=== PATIENT | female | born 1950 | race Caucasian/White ===

== ENCOUNTER → 2018-07-30 | Day surgery (SDC) | payer BC ==
[~2018-07-30] MED LIST: ALBUTEROL 0.083% (NEB) 2.5 MG/3 ML AMP HHN; CEFAZOLIN 1 GM INJ; CEFAZOLIN 2 GM/50 ML (PMX) 50 ML IVPB; DIPHENHYDRAMINE 50 MG INJ IV; EPHEDrine SULFATE 50 MG/5 ML SYG IV; FENTAnyl 50 MCG/ML VIAL; FENTAnyl 50 MCG/ML VIAL IV; HYDROCODONE/APAP (5/325) TAB PO; HYDROmorphONE 1 MG/5 ML IV SYRINGE IV; IPRATROPIUM (NEB) 0.5 MG/2.5 ML AMP HHN; LABETALOL HCL 20MG INJ IV; LIDOCAINE 100 MG SYRINGE; MEPERIDINE 25 MG INJ IV; MIDAZOLAM 1 MG/ML 2 ML INJ; MIDAZOLAM 1 MG/ML 2 ML INJ IV; ONDANSETRON 4 MG INJ; ONDANSETRON 4 MG INJ IV; OXYCODONE/ACETAMINOPHEN (5/325) TAB PO; PROPOFOL 20 ML; TRIMETHOBENZAMIDE 100 MG/ML VIAL IM; hydrALAzine 20 MG INJ IV
[2018-07-30] MEDS: SOD CHLORIDE 0.9% 1,000 ML IV (06:23)
[2018-07-30] MEDS: LIDOCAINE 1% (MPF) 30 ML INJ (07:40)
[2018-07-30] MEDS: BUPIVACAINE 0.25% (MPF) 30 ML INJ (07:40)
== END | disposition home or self-care (01) ==
LOC: SDS 05:45
DX: D17.24 Benign lipomatous neoplasm of skin and subcutaneous tissue of left leg (principal); I10 Essential (primary) hypertension
CPT/HCPCS: 14020; 88307